=== PATIENT | male | born 1960 | race Caucasian/White ===

== ENCOUNTER 2018-05-11 12:48 | Emergency (ER) | payer MEDICAID, MEDICARE ==
[~2018-05-11] VITALS: Ht 180.3 cm; Wt 70.0 kg
[~2018-05-11 12:48] MED LIST: DAPT500V3 IV; GABA-826 PO; MERO1VIA15 IV; NICO-487 TD; OXYC5TAB3 PO; TRAM50TA2 PO
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
--- NOTE | 2018-05-11 13:26 | NUR ---
REPORT FROM GAURANG HOWARD
--- NOTE | 2018-05-11 14:10 | NUR ---
COMFORT MEASURES TAKEN
--- NOTE | 2018-05-11 14:29 | NUR ---
COMFRT MEASURES TAKEN. PATIENT REPOSITIONED AND GIVEN BLANKETS FOR COMFORT
[2018-05-11] MEDS ORDERED: MEROPENEM 1 GM in SODIUM CHLORIDE 0.9% 100 ML IV ONE (16:30)
[2018-05-11 16:39] LABS: ALBUMIN 4.2 g/dL (3.4-5.0); ANION GAP 9 mmol/L (5-15); CALCIUM 9.8 mg/dL (8.5-10.1); CHLORIDE 100 mmol/L (98-107); CREATININE 0.82 mg/dL (0.7-1.3)
[2018-05-11 16:43] LABS: BASOPHILS # (AUTO) 0.07 x10^3/uL (0-0.1); BASOPHILS % (AUTO) 1 % (0-1); EOSINOPHILS % (AUTO) 0 % (1-7); LYMPHOCYTES # (AUTO) 1.35 x10^3/uL (1-3.4); LYMPHOCYTES % (AUTO) 14 % (22-44); MD NO; MEAN CORPUSCULAR HEMOGLOBIN 30.9 pg (27.5-34.5); MEAN CORPUSCULAR HGB CONC 32.9 g/dL (33.2-36.2); MEAN PLATELET VOLUME 9.6 fL (7.4-10.4); MONOCYTES # (AUTO) 0.76 x10^3/uL (0.2-0.8); MONOCYTES % (AUTO) 8 % (2-9); NEUTROPHILS # (AUTO) 7.57 x10^3/uL (1.8-6.8); NEUTROPHILS % (AUTO) 78 % (42-75); PLATELET COUNT 357 x10^3/uL (130-400); RED BLOOD COUNT 4.77 x10^6/uL (4.38-5.82); RED CELL DISTRIBUTION WIDTH 13.9 % (9.4-14.8)
--- NOTE | 2018-05-11 17:52 | NUR ---
JJ IN WITH PATIENT TO DISCUSS PLAN OF CARE WITH PATIENT
--- NOTE | 2018-05-11 18:18 | NUR ---
Patient/Caregiver given discharge instructions and they have confirmed that they understand the instructions. Patient ambulatory with steady gait. PT CHOOSING TO AMA AT THIS TIME. WANTS TO GET A SECOND OPINION.
[2018-05-11 18:19] VITALS: BP 117/76
== END 2018-05-11 18:22 | disposition left against medical advice (07) ==
LOC: ED 18:00
DX: M27.2 Inflammatory conditions of jaws (principal); Z72.9 Problem related to lifestyle, unspecified
CPT/HCPCS: 36415; 80048; 82040; 85025; 96365; 99283; J2185

== ENCOUNTER 2018-05-12 10:10 | Inpatient (IN) | payer MEDICARE, MEDICAID ==
[~2018-05-12] VITALS: Ht 182.9 cm; Wt 64.1 kg
--- NOTE | 2018-05-12 10:45 | NUR ---
PT TO ROOM AT THIS TIME
[2018-05-12 11:17] LABS: BASOPHILS # (AUTO) 0.02 x10^3/uL (0-0.1); BASOPHILS % (AUTO) 0 % (0-1); EOSINOPHILS # (AUTO) 0.03 x10^3/uL (0-0.4); EOSINOPHILS % (AUTO) 1 % (1-7); LYMPHOCYTES # (AUTO) 1.07 x10^3/uL (1-3.4); LYMPHOCYTES % (AUTO) 21 % (22-44); MD NO; MEAN CORPUSCULAR HEMOGLOBIN 31.1 pg (27.5-34.5); MEAN CORPUSCULAR HGB CONC 33.3 g/dL (33.2-36.2); MEAN CORPUSCULAR VOLUME 93.5 fL (81-97); MEAN PLATELET VOLUME 9.7 fL (7.4-10.4); MONOCYTES # (AUTO) 0.35 x10^3/uL (0.2-0.8); MONOCYTES % (AUTO) 7 % (2-9); NEUTROPHILS # (AUTO) 3.57 x10^3/uL (1.8-6.8); NEUTROPHILS % (AUTO) 71 % (42-75); PLATELET COUNT 302 x10^3/uL (130-400); RED BLOOD COUNT 4.26 x10^6/uL (4.38-5.82); RED CELL DISTRIBUTION WIDTH 14.1 % (9.4-14.8)
[2018-05-12 11:29] LABS: ALBUMIN 3.7 g/dL (3.4-5.0); ANION GAP 14 mmol/L (5-15); CHLORIDE 97 mmol/L (98-107)
[2018-05-12 11:30] LABS: CREATININE 0.67 mg/dL (0.7-1.3)
[2018-05-12] MEDS ORDERED: DAPTOMYCIN 400 MG in SODIUM CHLORIDE 0.9% 100 ML IV SCH (12:00)
--- NOTE | 2018-05-12 12:21 | NUR ---
IV ABX INFUSING.
[2018-05-12] MEDS ORDERED: KETOROLAC 30 MG/1 ML IVPush ONE (13:00)
[2018-05-12] MEDS ORDERED: MEROPENEM 1 GM in SODIUM CHLORIDE 0.9% 100 ML IV ONE (13:00)
[2018-05-12] MEDS ORDERED: KETOROLAC 30 MG/1 ML ONE (13:45)
[2018-05-12] MEDS ORDERED: KETOROLAC 30 MG/1 ML IV PRN (14:00)
[2018-05-12] MEDS ORDERED: LABETALOL 5MG/ML, 20ML IVPush PRN (14:00)
[2018-05-12] MEDS ORDERED: hydrALAzine 20 MG/ML, 1ML IVPush PRN (14:00)
--- NOTE | 2018-05-12 14:27 | NUR ---
REPORT TO SEBASTIAN
[2018-05-12 15:25] LABS: HCT (SEDRATE) 39.8 % (39.2-51.8)
[2018-05-12 15:41] VITALS: BP 152/84
[2018-05-12] MEDS: HEPARIN 5,000 UNITS/ML, 1ML SQ SCH ×2 (15:55→22:00)
[2018-05-12] MEDS: ACETAMINOPHEN 325 MG TABLET PO PRN ×2 (15:56→22:28)
[2018-05-12 19:05] VITALS: BP 151/91
[2018-05-12] MEDS ORDERED: MEROPENEM 1 GM in SODIUM CHLORIDE 0.9% 100 ML IV SCH (21:00)
[2018-05-13] MEDS ORDERED: DAPTOMYCIN 400 MG in SODIUM CHLORIDE 0.9% 100 ML IV SCH (12:00)
== END 2018-05-13 | disposition left against medical advice (07) | DRG 158 ==
LOC: MERGE 10:10 → ED 12:39 → EDIP 13:52 → 3NE 14:37
PROVIDERS: ADMIT Hospitalist; ATTEND Hospitalist
DX: M27.2 Inflammatory conditions of jaws (principal); S02.651A Fracture of angle of right mandible, initial encounter for closed fracture; E87.2 Acidosis; E87.1 Hypo-osmolality and hyponatremia; Z59.0 Homelessness; F17.200 Nicotine dependence, unspecified, uncomplicated; I10 Essential (primary) hypertension; Z79.2 Long term (current) use of antibiotics; Z91.19 Patient's noncompliance with other medical treatment and regimen; Z53.21 Procedure and treatment not carried out due to patient leaving prior to being seen by health care provider
CPT/HCPCS: 36415; 80048; 82040; 83605; 85025; 85651; 86140; 87040; 96374; 96375; 99285; G0378; J0878; J1644; J1885; J2185

== ENCOUNTER 2018-05-22 12:07 | Inpatient (IN) | payer MEDICARE, MEDICAID, OTHER ==
[~2018-05-22] VITALS: Ht 182.9 cm; Wt 65.0 kg
--- NOTE | 2018-05-22 12:13 | NUR ---
PT BIB [facility] FOR C/O INC RT JAW PAIN; HX OSTOMYELITIS WITH PAST IV ABX TX, PT LEFT HOSPITAL AMA X 2 SO TX HAS NEVER BEEN COMPLETED. REPORT RECEIVED FROM [employer] [facility]. PT ATTACHED TO BP AND SPO2 MONITORS, PT EXAMINED BY EDMD, AWAITING ORDERS AT THIS TIME. [employer] [facility] AT BEDSIDE, CALL LIGHT IN REACH.
[2018-05-22 12:28] LABS: BASOPHILS # (AUTO) 0.02 x10^3/uL (0-0.1); BASOPHILS % (AUTO) 1 % (0-1); EOSINOPHILS % (AUTO) 0 % (1-7); LYMPHOCYTES # (AUTO) 1.38 x10^3/uL (1-3.4); LYMPHOCYTES % (AUTO) 33 % (22-44); MD NO; MEAN CORPUSCULAR HEMOGLOBIN 31.4 pg (27.5-34.5); MEAN CORPUSCULAR HGB CONC 33.4 g/dL (33.2-36.2); MEAN PLATELET VOLUME 8.3 fL (7.4-10.4); MONOCYTES # (AUTO) 0.33 x10^3/uL (0.2-0.8); MONOCYTES % (AUTO) 8 % (2-9); NEUTROPHILS # (AUTO) 2.48 x10^3/uL (1.8-6.8); NEUTROPHILS % (AUTO) 59 % (42-75); PLATELET COUNT 309 x10^3/uL (130-400); RED CELL DISTRIBUTION WIDTH 15.2 % (9.4-14.8)
[2018-05-22] MEDS ORDERED: SODIUM CHLORIDE FLUSH 10ML SYR IVF ONE (12:30)
--- NOTE | 2018-05-22 12:36 | NUR ---
report given to primary RN Eboni.
--- NOTE | 2018-05-22 12:37 | NUR ---
RECEIVED BEDSIDE REPORT FROM GUERO LANIER RN.
[2018-05-22 12:39] LABS: ALBUMIN 3.7 g/dL (3.4-5.0); ANION GAP 3 mmol/L (5-15); CALCIUM 9.2 mg/dL (8.5-10.1); CHLORIDE 102 mmol/L (98-107); CREATININE 0.74 mg/dL (0.7-1.3)
--- NOTE | 2018-05-22 13:03 | NUR ---
BEDSIDE REPORT TO LEE MATA.
--- NOTE | 2018-05-22 13:49 | NUR ---
BREAK RN: PT TO RADIOLOGY
--- NOTE | 2018-05-22 14:33 | NUR ---
CT CALLED. NOTIFIED SHERINE IN CT THAT PATIENT HAS A NEW PIV FOR CT SCAN. 20G PIV IN LAC WORKS WELL BUT IS PAINFUL TO PATIENT HOWEVER NO EVIDENCE OF EXTRAVASATION.
[2018-05-22] MEDS ORDERED: VANCOMYCIN 1,300 MG in SODIUM CHLORIDE 0.9% 250 ML IV ONE (16:30)
[2018-05-22] MEDS ORDERED: VANCOMYCIN PER PHARMACY MC PRN (16:30)
[2018-05-22] MEDS ORDERED: MEROPENEM 1 GM in SODIUM CHLORIDE 0.9% 100 ML IV ONE (16:30)
[2018-05-22] MEDS ORDERED: LABETALOL 5 MG/ML SYRINGE IVPush PRN (17:00)
[2018-05-22] MEDS ORDERED: hydrALAzine 20 MG/ML, 1ML IVPush PRN (17:00)
[2018-05-22] MEDS: MEROPENEM 1 GM in SODIUM CHLORIDE 0.9% 100 ML IV SCH (17:08)
[2018-05-22 17:30] VITALS: BP 154/88
[2018-05-22] MEDS: SODIUM CHLORIDE 0.9% 1,000 ML IV SCH (17:57)
[2018-05-22 18:44] VITALS: BP 146/89
[2018-05-22] MEDS ORDERED: DAPTOMYCIN 400 MG in SODIUM CHLORIDE 0.9% 100 ML IV SCH (19:00)
[2018-05-22] MEDS: HEPARIN 5,000 UNITS/ML, 1ML SQ SCH (21:00)
[2018-05-22] MEDS: ACETAMINOPHEN 325 MG TABLET PO PRN (21:11)
[2018-05-23] MEDS: MEROPENEM 1 GM in SODIUM CHLORIDE 0.9% 100 ML IV SCH ×2 (01:37→08:33)
[2018-05-23 03:55] VITALS: BP 148/76
[2018-05-23 04:06] VITALS: BP 148/76
[2018-05-23 05:29] LABS: BASOPHILS # (AUTO) 0.05 x10^3/uL (0-0.1); BASOPHILS % (AUTO) 1 % (0-1); EOSINOPHILS # (AUTO) 0.09 x10^3/uL (0-0.4); EOSINOPHILS % (AUTO) 2 % (1-7); LYMPHOCYTES # (AUTO) 1.07 x10^3/uL (1-3.4); LYMPHOCYTES % (AUTO) 23 % (22-44); MD NO; MEAN CORPUSCULAR HEMOGLOBIN 32.4 pg (27.5-34.5); MEAN CORPUSCULAR HGB CONC 34.3 g/dL (33.2-36.2); MEAN CORPUSCULAR VOLUME 94.3 fL (81-97); MEAN PLATELET VOLUME 8.8 fL (7.4-10.4); MONOCYTES # (AUTO) 0.37 x10^3/uL (0.2-0.8); MONOCYTES % (AUTO) 8 % (2-9); NEUTROPHILS # (AUTO) 3.07 x10^3/uL (1.8-6.8); NEUTROPHILS % (AUTO) 66 % (42-75); PLATELET COUNT 254 x10^3/uL (130-400); RED BLOOD COUNT 4.01 x10^6/uL (4.38-5.82); RED CELL DISTRIBUTION WIDTH 14.9 % (9.4-14.8)
[2018-05-23 05:35] LABS: ANION GAP 5 mmol/L (5-15); CALCIUM 8.3 mg/dL (8.5-10.1); CHLORIDE 107 mmol/L (98-107); CREATININE 0.49 mg/dL (0.7-1.3)
[2018-05-23] MEDS: SODIUM CHLORIDE 0.9% 1,000 ML IV SCH (05:37)
[2018-05-23] MEDS: HEPARIN 5,000 UNITS/ML, 1ML SQ SCH ×3 (05:37→20:39)
[2018-05-23 07:41] VITALS: BP 155/98
[2018-05-23 08:20] LABS: HCT (SEDRATE) 37.8 % (39.2-51.8)
[2018-05-23] MEDS: ACETAMINOPHEN 325 MG TABLET PO PRN ×2 (12:02→20:39)
[2018-05-23] MEDS ORDERED: LEVOFLOXACIN 500 MG TABLET PO SCH (15:30)
[2018-05-23 15:32] VITALS: BP 142/89
[2018-05-23] MEDS: AMOXICILLIN/CLAV 875-125MG TABLET PO SCH (16:17)
[2018-05-23 19:09] VITALS: BP 123/84
[2018-05-24 02:33] VITALS: BP 140/79
[2018-05-24] MEDS: AMOXICILLIN/CLAV 875-125MG TABLET PO SCH (03:30)
[2018-05-24] MEDS: HEPARIN 5,000 UNITS/ML, 1ML SQ SCH (05:19)
[2018-05-24 07:25] VITALS: BP 148/100
[2018-05-24] MEDS ORDERED: AMLODIPINE 5 MG TABLET PO SCH (09:00)
[2018-05-24] MEDS ORDERED: AMOX1TAB12 PO (10:17)
[2018-05-24] MEDS ORDERED: AMLO-150 PO (10:17)
[2018-05-24] MEDS ORDERED: LEVO500T47 PO (10:17)
[2018-05-24 11:45] VITALS: BP 135/79
== END 2018-05-24 12:00 | disposition home or self-care (01) | DRG 540 ==
LOC: ED 12:16 → EDIP 16:13 → 4NOR 17:20
PROVIDERS: ADMIT Hospitalist; ATTEND Hospitalist
DX: M86.60 Other chronic osteomyelitis, unspecified site (principal); S02.651 Fracture of angle of right mandible; E87.2 Acidosis; E87.1 Hypo-osmolality and hyponatremia; F17.200 Nicotine dependence, unspecified, uncomplicated; I10 Essential (primary) hypertension; M27.2 Inflammatory conditions of jaws; Z91.19 Patient's noncompliance with other medical treatment and regimen
CPT/HCPCS: 36415; 70487; 80048; 82040; 83605; 83735; 84100; 85025; 85651; 86140; 87040; 96374; G0378; J0878; J1644; J2185; J3370; J7030; J7050